=== PATIENT | male | born 1950 | race Caucasian/White ===

== ENCOUNTER 2017-08-21 20:47 | Inpatient (IN) | payer MEDICARE, MEDICAID, SELFPAY ==
[2017-08-21 20:48] VITALS: BP 137/75; PULSE 122; RESP 21; TEMP 36.6; O2SAT 92; BMI 50.5
--- NOTE | 2017-08-21 20:58 | EKG12_ITS ---
Test Reason : SOB,CP Blood Pressure : / mmHG Vent. Rate : 120 BPM Atrial Rate : 120 BPM P-R Int : 124 ms QRS Dur : 080 ms QT Int : 348 ms P-R-T Axes : -03 -53 059 degrees QTc Int : 491 ms Sinus tachycardia with ventricular bigeminy Left axis deviation Inferior infarct , age undetermined Abnormal ECG Confirmed by TANYA GARRETT ([id number]), fan mail editor CRISTELA LONG ([id number]) on 08/31/2017 6:10:38 PM Referred By: FIDENCIO Confirmed By:TANYA GARRETT
[2017-08-21 21:00] VITALS: BP 148/73; PULSE 122; RESP 24; O2SAT 92
[2017-08-21 21:01] LABS: Bedside Glucose > 500 mg/dL (70-110)
[2017-08-21] MEDS: 0.9% Normal Saline 1,000 ML 1000 ML IV (21:05)
[2017-08-21 21:12] LABS: Absolute Lymphocyte Count 2.07 X10^3/ul (0.83-4.51); Basophil# 0.02 X10^3/uL; Basophil% 0.2 % (0-1); Eosinophil# 0.03 X10^3/uL; Eosinophils% 0.3 % (0-5); Hemoglobin 15.3 g/dl (13.0-16.5); Lymphocyte # 2.07 X10^3/ul (4.0); Lymphocyte % 17.4 % (19-41); Mean Corpuscular Hgb 29.2 pg (27.0-32.0); Mean Corpuscular Volume 85.9 fL (80-94); Mean Platelet Vol. 10.2 fl (6.2-12.0); Neutrophil # 9.03 X10^3/uL (2.7-7.7); Neutrophil % 75.9 % (47-70); Platelet Count 385 K/mm3 (150-450); RBC Distribution Width CV 13.4 % (11.6-14.6); RBC Distribution Width SD 42.1 fl (35.1-43.9); Red Blood Count 5.24 M/mm3 (4.6-6.2); White Blood Count 11.9 K/mm3 (4.4-11.0)
[2017-08-21 21:13] LABS: POSITIVE COUNT NO; POSITIVE DIFFERENTIAL NO; POSITIVE MORPHOLOGY NO
--- NOTE | 2017-08-21 21:15 | RAD_ITS ---
STUDY: X-RAY CHEST REASON FOR EXAM: Male, 67 years old. Shortness of breath, recent fall TECHNIQUE: Frontal views of the chest were obtained. COMPARISON: June 08, 2017 FINDINGS: The lungs are underaerated. There are no focal airspace opacities. There is no demonstrated pleural abnormality. There is mild enlargement of the cardiac silhouette. The mediastinum and hilar regions are unremarkable. Normal visualized pulmonary arteries. Normal visualized aortic arch and descending thoracic aorta. There are diffuse degenerative changes of the visualized spine. The visualized ribs, clavicles, and shoulders are unremarkable. There is no demonstrated abnormality of the visualized upper abdomen. RAD/Chest 1 View (Portable) IMPRESSION: No acute cardiopulmonary abnormalities. Electronically Signed: Milady Franco MD at 22:25 EDT Tel Direct: [phone], Service support ,
[2017-08-21 21:32] LABS: ALB/GLOB Ratio 0.8 RATIO (0.9-2.4); AST(SGOT) 24 U/L (15-37); Alanine Aminotransfer ALT/SGPT 32 U/L (16-61); Albumin, Serum 3.5 g/dL (3.2-5.0); Alkaline Phosphatase 76 U/L (45-117); Anion Gap 31 (5-15); BUN 36 mg/dL (7-18); BUN/Creat Ratio 19.1 RATIO (10-20); Calcium,Total 10.4 mg/dL (8.5-10.1); Chloride 83 mmol/L (98-107); Creatinine, Serum 1.88 mg/dL (0.70-1.30); EST Glomerular Filtration Rate 38 mL/min (>60); Est Glom Filt Rate - Afr Amer 46 mL/min (>60); Estimated Creatinine Clearance 39.91 ml/min; Globulin 4.4 g/dL (2.2-4.2); Glucose 629 mg/dL (74-106); Potassium 4.1 mmol/L (3.5-5.1); Protein, Total 7.9 g/dL (6.4-8.2); Sodium Level 128 mmol/L (136-145)
--- NOTE | 2017-08-21 21:56 | ED.DCSUM_ITS ---
- ER Visit Summary Date of Service: 08/21/17 Chief Complaint: Not feeling well History of Present Illness: The patient is a 67 M presenting stating that he does not feel well. His states that he has been feeling sick for the past 2 days. He is unable to describe his symptoms. His states today he rolled out of bed and she was unable to get him up. Patient is unsure if he hit his head or lost consciousness. He denies headache or vomiting. EMS was called. On their arrival his BGT was reading high. He complains of dry mouth and thirst. states he complained of chest pain earlier today. He has chronic shortness of breath. Denies fever or cough. Denies abdominal pain, nausea, vomiting. He is on home O2. Physical Examination: Vitals are stable. Heart rate 122. Patient is afebrile. Alert no acute distress. HEENT exam dry mucous membranes Neck is supple. Lungs are clear and equal bilaterally. Heart is regular and tachycardic Abdomen is soft obese mild diffuse tenderness with no rebound or guarding Extremities are unremarkable. Skin is warm and dry. No focal neurologic deficit. Remainder of exam is unremarkable. Emergency Department Course and Treatment: EKG is sinus tachycardia rate of 120 with fusion complexes. CBC shows a white count 11.9. Chemistries show sodium 128, CO2 14, anion gap 31, glucose 629, BUN 36, creatinine 1.88. Troponin is negative. Moderate serum ketones. Urinalysis shows 0 white cells, 0 red cells. Urine is positive for glucose and ketones. Chest xray shows no acute process. He was given IV fluids and started on insulin drip. Discussed with the hospitalist for admission. Disposition: Admission Impression: DKA This note was generated with [employer] dictation software. It may contain incorrect words, spelling, and punctuation that were not noted in review of the chart prior to signing ED Disposition - Plan for ED Patient: Chief Complaint: Hyperglycemia Referrals: Tor Juarez [Primary Care Provider] -
[2017-08-21 22:00] VITALS: BP 139/82; PULSE 115; RESP 23; O2SAT 91
[2017-08-21 22:05] LABS: Bacteria 0 SEEN /hpf (None Seen); Mucous, Urine 0 SEEN /hpf (<or=2+); Red Blood Cells-Urine 0 SEEN /hpf (0-5); White Blood Cells 0 SEEN /hpf (0-5)
[2017-08-21 22:15] LABS: Color, Urine Yellow (Yellow); Glucose, Dipstick 1000 mg/dl (Normal); Leukocyte Esterase-Dipstick Negative /ul (Negative); Nitrite-Dipstick Negative (Negative); Occult Blood-Urine 150 /ul (Negative); Protein-Dipstick 100 mg/dl (Negative); Urine Bilirubin Dipstick Negative (Negative); Urine Clarity Sl. Cloudy (Clear); Urine Urobilinogen Normal (Normal)
[2017-08-21 22:17] LABS: Ketone-Dipstick 150 mg/dl (Negative)
[2017-08-21] MEDS: Ondansetron 4 MG/2 ML Vial IV (22:20)
[2017-08-21] MEDS: 0.9% Normal Saline 1,000 ML 999 ML IV (22:20)
[2017-08-21] MEDS: Morphine 4 MG/ML Syringe IV (22:20)
[2017-08-21 22:21] LABS: Amorphous Sediment 1+ URATE; Squamous Epithelial Cells - UA 0-5 SEEN /hpf (0-5)
[2017-08-21 22:46] LABS: Bedside Glucose > 500 mg/dL (70-110)
[2017-08-21 23:05] VITALS: BP 132/71; PULSE 117; RESP 17; O2SAT 95
--- NOTE | 2017-08-21 23:05 | DT_ITS ---
This patient was seen during an EMR downtime August 24, 2017 - August 31, 2017. This patient may have a combination of paper and electronic documentation or all paper documentation. All documentation is viewable within the e-chart portion of [employer] for each patient visit.
[2017-08-21 23:21] VITALS: BMI 50.3; BMI 50.6
--- NOTE | 2017-08-21 23:22 | PCM.HP.STD ---
Problem List (1) DMII (diabetes mellitus, type 2) Status: Acute (2) DKA (diabetic ketoacidoses) Status: Acute (3) JOVANI (acute kidney injury) Status: Acute (4) Hyponatremia Status: Acute History of Present Illness Date of Admission: 08/21/17 Chief Complaint: DKA The patient is a 67 year old male w/ h/o DMII and HTN admitted for DKA. He has been noncompliant with meds and diet. According to family, he does not help himself and eats whatever he wants from drinking an excessive amount of sodas to noncompliant with insulin especially when no one is home. He also does not help himself and just sits around all day with family members doing everything for him. He has been feeling sick for the past few days and when he rolled out of bed, he was unable to get up. His son was unable to help him get out of bed this time. Paramedics was called and took him to the ED. Past Medical History Allergies DYE FROM HEART CATH Allergy (Uncoded 09/22/15 15:26) Anaphylaxis Home Medications: Ambulatory Orders Medication Instructions Recorded Aspirin 325 mg PO DAILY 08/21/17 Cholecalciferol (Vitamin D3) 5,000 units DAILY 08/21/17 [Vitamin D3] Clopidogrel Bisulfate [Plavix] 75 mg DAILY 08/21/17 Cyanocobalamin (Vitamin B-12) 2,500 mcg PO DAILY 08/21/17 [Vitamin B12] Esomeprazole Magnesium 40 mg DAILY 08/21/17 [Esomeprazole Magnesium] Fenofibrate Nanocrystallized 145 mg DAILY 08/21/17 [Fenofibrate] Fluticasone/Salmeterol [Advair 1 puff BID 08/21/17 500-50 Diskus] Furosemide [Lasix] 40 mg TID 08/21/17 Gabapentin [Neurontin] 300 mg DAILY 08/21/17 Insulin Human 70/30 [Novolog Mix 0 units SC 4X/DAY 08/21/17 70-30 Flexpen Syrn] Iron 1 tab DAILY 08/21/17 Losartan/Hydrochlorothiazide 1 each PO DAILY 08/21/17 [Losartan-Hctz 50-12.5 mg Tab] Metformin HCl [Glucophage] 1,000 mg BID 08/21/17 Metoprolol Tartrate [Lopressor 50 mg BID 08/21/17 (beta edison)] Potassium Chloride [Potassium 40 meq DAILY 08/21/17 Chloride] Rosuvastatin Calcium [Crestor] 20 mg PO DAILY 08/21/17 Tiotropium [place] [Spiriva] 08/21/17 Surgical History: no surgical history Lives: With Family Smoking Status: Never smoker Alcohol: None Drugs: None - *Family History Maternal History Items: No pertinent history Review of Systems Constitutional: Denies: Chills, Fever, Weight Change HEENT: Denies: Head Aches, Sinus Congestion, Sinus Drainage Cardiovascular: Denies: Chest Pain, Palpitations Respiratory: Denies: Cough, Shortness of breath at rest, Sputum production Gastrointestinal: Denies: Abdominal Pain, Nausea, Vomiting Genitourinary: Denies: Dysuria Musculoskeletal: Reports: Back Pain. Denies: Joint Pain, Joint Tenderness Skin: Denies: Rash, Wounds Neurological: Denies: Numbness, Tingling, Focal weakness Psychiatric: Denies: Anxiety, Depression, Homicidal Ideations, Suicidal Ideations Hematologic/ Lymphatic: Denies: Easy Bruising, Easy Bleeding VTE Information - Inpt Only VTE Present on Admission: No VTE Pharm Prophylaxis ordered?: Yes Patient Problems: Active and Suspected Problems DMII (diabetes mellitus, type 2) (Acute) DKA (diabetic ketoacidoses) (Acute) JOVANI (acute kidney injury) (Acute) Hyponatremia (Acute) - Physical Exam General: Alert, Oriented x3, Cooperative HEENT: Atraumatic, PERRLA, EOMI, Normocephalic Neck: Supple, No JVD, Negative Carotid Bruits Lungs: Clear to auscultation, Normal air movement Cardiovascular: No murmurs, Tachycardic Abdomen: Bowel Sounds Present, Soft, Non Tender Extremities: Cool, Edema Skin: No rashes, No breakdown Musculoskeletal: No Tenderness to Palpation of Joints or Extremities Neurological: Cranial nerves II-XII grossly intact Psych/Mental Status: Normal Affect, Appropriate Vital Signs Temp Pulse Resp BP Pulse Ox 98 F 115 H 23 H 139/82 H 91 08/21/17 20:48 08/21/17 22:00 08/21/17 22:00 08/21/17 22:00 08/21/17 22:00 Assessment/Plan All Active Problems DMII (diabetes mellitus, type 2) (Acute) DKA (diabetic ketoacidoses) (Acute) JOVANI (acute kidney injury) (Acute) Hyponatremia (Acute) 67 year old male w/ h/o DMII and HTN admitted for DKA. 1) DKA: Most likely secondary to noncompliant. Metabolic acidosis, gap 31 and glucose 629 DKA protocol. Trop negative. Insulin gtt and hydration. 2) JOVANI: Hydration. U/A unremarkable with the exception for glucose and ketones. Supportive care. 3) Hyponatremia: Most likely pseudohyponatremia. Hydration. C/w insulin. 4) Physical decondition: Probably may need placement as family unable to care for pt. Social work consult. PT/OT.
[2017-08-21 23:30] LABS: Bedside Glucose 460 mg/dL (70-110)
[2017-08-22] VITALS (39 sets, daily range): BP systolic 100–168; BP diastolic 62–105; PULSE 80–122; RESP 14–28; TEMP 36.5–36.9; O2SAT 90–95
--- NOTE | 2017-08-22 00:13 | ED.RN ---
AT 2330 BLOOD SUGAR WAS 460. PREVIOUS FINGER STICK WAS HIGH. SO GLUCOSE DECREASED BY UNKNOWN NUMBER. INSULIN GTT STAYED SAME PER DECREASING BY 1-49 -KEEP GTT SAME. SERUM GLUCOSE 612 ARRIVAL, BUT 2 L IV FLUID GIVEN BEFORE INSULIN GTT STARTED.
[2017-08-22 00:45] LABS: Bedside Glucose 359 mg/dL (70-110)
[2017-08-22] MEDS: 0.9% Normal Saline 1,000 ML 250 ML IV (01:18)
[2017-08-22 01:28] LABS: Hemoglobin A1c 12.9 % (4.2-6.3)
[2017-08-22 01:49] LABS: AST(SGOT) 35 U/L (15-37); Alanine Aminotransfer ALT/SGPT 31 U/L (16-61); Albumin, Serum 3.4 g/dL (3.2-5.0); Alkaline Phosphatase 71 U/L (45-117); Anion Gap 25 (5-15); BUN 40 mg/dL (7-18); BUN/Creat Ratio 26.3 RATIO (10-20); Bilirubin, Direct 0.08 mg/dL (0.00-0.30); Calcium,Total 10.4 mg/dL (8.5-10.1); Chloride 92 mmol/L (98-107); Creatinine, Serum 1.52 mg/dL (0.70-1.30); EST Glomerular Filtration Rate 49 mL/min (>60); Est Glom Filt Rate - Afr Amer 59 mL/min (>60); Estimated Creatinine Clearance 49.36 ml/min; Globulin 4.2 g/dL (2.2-4.2); Glucose 302 mg/dL (74-106); Potassium 3.4 mmol/L (3.5-5.1); Protein, Total 7.6 g/dL (6.4-8.2); Sodium Level 132 mmol/L (136-145)
[2017-08-22 02:06] LABS: Bedside Glucose 242 mg/dL (70-110)
[2017-08-22 02:07] LABS: Osmolality, Serum 320 mOsm/KG (280-301)
[2017-08-22 02:14] LABS: M R Staph aureus DNA By PCR Negative (Negative); Probe Check PASS; Specimen Processing Control PASS
[2017-08-22 02:45] LABS: Bedside Glucose 237 mg/dL (70-110)
[2017-08-22 04:01] LABS: Bedside Glucose 266 mg/dL (70-110)
[2017-08-22] MEDS: CHLORHEXIDINE GLUC 2% CLOTH 1 EACH TOWELETTE TOPICAL (04:45)
[2017-08-22 05:16] LABS: Bedside Glucose 224 mg/dL (70-110)
[2017-08-22 05:26] LABS: Basophil# 0.01 X10^3/uL; Basophil% 0.1 % (0-1); Differential Indicated SCAN CRITERIA MET; Eosinophil# 0.01 X10^3/uL; Eosinophils% 0.1 % (0-5); Hematocrit 40.7 % (40-54); Lymphocyte % 10.4 % (19-41); Mean Corp Hgb Conc 34.4 g/gl (32-36); Mean Corpuscular Hgb 29.2 pg (27.0-32.0); Mean Corpuscular Volume 84.8 fL (80-94); Monocyte# 1.42 X10^3/uL; Monocyte% 8.2 % (0-10); Neutrophil # 14.02 X10^3/uL (2.7-7.7); Neutrophil % 80.8 % (47-70); POSITIVE COUNT YES; POSITIVE DIFFERENTIAL NO; POSITIVE MORPHOLOGY YES; Platelet Count 337 K/mm3 (150-450); RBC Distribution Width CV 13.5 % (11.6-14.6); RBC Distribution Width SD 41.4 fl (35.1-43.9); White Blood Count 17.3 K/mm3 (4.4-11.0)
[2017-08-22 05:38] LABS: Magnesium 2.4 mg/dL (1.6-2.6)
[2017-08-22] MEDS: Dext 5%-0.45% NS 1,000 ML 150 ML IV ×2 (05:43→12:51)
[2017-08-22 05:45] LABS: Phosphorus 4.3 mg/dL (2.5-4.9)
[2017-08-22 06:16] LABS: Bedside Glucose 252 mg/dL (70-110)
[2017-08-22 07:15] LABS: Bedside Glucose 220 mg/dL (70-110)
[2017-08-22] MEDS: Haloperidol Lactate 5 MG/ML Vial 2 MG IV (08:12)
[2017-08-22] MEDS: Haloperidol Lactate 5 MG/ML Vial IV (08:30)
[2017-08-22 08:35] LABS: Bedside Glucose 214 mg/dL (70-110)
[2017-08-22 08:55] LABS: Anion Gap 15 (5-15); BUN 37 mg/dL (7-18); BUN/Creat Ratio 25.7 RATIO (10-20); Calcium,Total 9.8 mg/dL (8.5-10.1); Chloride 96 mmol/L (98-107); Creatinine, Serum 1.44 mg/dL (0.70-1.30); EST Glomerular Filtration Rate 52 mL/min (>60); Est Glom Filt Rate - Afr Amer 63 mL/min (>60); Glucose 230 mg/dL (74-106); Sodium Level 134 mmol/L (136-145)
--- NOTE | 2017-08-22 09:04 | PCM.PN.HOSP ---
Patient Problems: Active and Suspected Problems DMII (diabetes mellitus, type 2) (Acute) DKA (diabetic ketoacidoses) (Acute) JOVANI (acute kidney injury) (Acute) Hyponatremia (Acute) Subjective: Complains of back pain. Wanting to get up and get out of the hospital. Vitals/I&O's: Vital Signs Temp Pulse Resp BP Pulse Ox 36.5 C L 114 H 15 152/67 H 91 08/22/17 08:00 08/22/17 08:00 08/22/17 08:00 08/22/17 08:00 08/22/17 08:00 Oxygen Flow Rate (L/min) 5 Oxygen Delivery Method Nasal Cannula Weight: 158 kg Body Mass Index (BMI) 50.3 Finger Stick Blood Glucose 252 Intake and Output for Last 24 Hours 08/20/17 08/21/17 08/22/17 23:59 23:59 23:59 Intake Total 1245 / 1245 Output Total 400 / 400 Balance 845 / 845 General: Confused, - - Awake. Anxious. Agitated. HEENT: Atraumatic, Normocephalic Oral: Moist Mucosa, - - edentulous Neck: No Nodes, Thyroid Normal Size and Texture Lungs: Clear to auscultation, Normal air movement, No rhonchi, No wheeze Cardiovascular: Regular rate, Regular Rhythm, Normal S1, Normal S2, No murmurs Abdomen: Bowel Sounds Present, Soft, Non Tender, Non-Distended Extremities: No edema, No Calf Tenderness Psych/Mental Status: Agitated, Anxious Laboratory Results 08/21/17 23:27: POC Glucose 460 H* 08/22/17 00:38: POC Glucose 359 H 08/22/17 00:40: MRSA (PCR) Negative 08/22/17 01:20: Total Bilirubin 0.40, Direct Bilirubin 0.08, AST 35, ALT 31, Alkaline Phosphatase 71, Total Protein 7.6, Albumin 3.4, Globulin 4.2 08/22/17 01:20: Sodium 132 L, Potassium 3.4 L, Chloride 92 L, Carbon Dioxide 15.0 L, Anion Gap 25 H, BUN 40 H, Creatinine 1.52 H, Estim Creat Clear Calc 49.36, Est GFR (MDRD) Af Amer 59 L, Est GFR (MDRD) Non-Af 49 L, BUN/Creatinine Ratio 26.3 H, Glucose 302 H, Calcium 10.4 H 08/22/17 01:20: Serum Osmolality 320 H 08/22/17 01:20: Sodium Cancelled, Potassium Cancelled, Chloride Cancelled, Carbon Dioxide Cancelled, Anion Gap Cancelled, BUN Cancelled, Creatinine Cancelled, Est GFR (MDRD) Af Amer Cancelled, Est GFR (MDRD) Non-Af Cancelled, BUN/Creatinine Ratio Cancelled, Glucose Cancelled, Calcium Cancelled, Troponin I < 0.015 08/22/17 01:48: POC Glucose 242 H 08/22/17 02:41: POC Glucose 237 H 08/22/17 03:51: POC Glucose 266 H 08/22/17 05:11: POC Glucose 224 H 08/22/17 05:12: WBC 17.3 H, RBC 4.80, Hgb 14.0, Hct 40.7, MCV 84.8, MCH 29.2, MCHC 34.4, RDW 13.5, RDW Differential 41.4, Plt Count 337, MPV 10.0, Immature Gran % (Auto) 0.400, Neut % (Auto) 80.8 H, Lymph % (Auto) 10.4 L, [place] % (Auto) 8.2, Eos % (Auto) 0.1, Baso % (Auto) 0.1, Absolute Neuts (auto) 14.0 H, Absolute Lymphs (auto) 1.80, Total Counted Not Reportable, Differential Comment 08/22/17 05:12: Magnesium 2.4, Troponin I 0.018 08/22/17 05:12: Phosphorus 4.3 08/22/17 06:07: POC Glucose 252 H 08/22/17 07:08: POC Glucose 220 H 08/22/17 08:10: POC Glucose 214 H 08/22/17 08:35: Sodium 134 L, Potassium 4.0, Chloride 96 L, Carbon Dioxide 23.0, Anion Gap 15, BUN 37 H, Creatinine 1.44 H, Estim Creat Clear Calc 52.10, Est GFR (MDRD) Af Amer 63, Est GFR (MDRD) Non-Af 52 L, BUN/Creatinine Ratio 25.7 H, Glucose 230 H, Calcium 9.8 Current Medications Aspirin (Aspirin) 325 mg PO DAILYCM ELIANA Atorvastatin Calcium (Lipitor) 40 mg PO DAILY@2200 [facility] Chlorhexidine Gluconate () 1 each TOPICAL DAILY [facility] Last Admin: 08/22/17 04:45 Dose: 1 each Clopidogrel Bisulfate (Plavix) 75 mg PO DAILY [facility] Dextrose (D50w Syringe) 0 gm IV X1 PRN; Protocol PRN Reason: Hypoglycemia Dextrose (D50w Syringe) 0 gm IV X1 PRN; Protocol PRN Reason: AGITATION Insulin Aspart 100 unit/ (Sodium Chloride) 100 mls @ 16 mls/hr IV .Q6H15M ELIANA; 0.1 UNITS/KG/HR PRN Reason: Protocol Last Admin: 08/22/17 01:19 Dose: Not Given Sodium Chloride () 250 mls @ 15 mls/hr IV .[id number] PRN PRN Reason: SALINE FLUSH Dextrose/Sodium Chloride () 1,000 mls @ 150 mls/hr IV .Q6H40M ELIANA Last Admin: 08/22/17 05:43 Dose: 150 mls/hr Metoprolol Tartrate (Lopressor (Beta Hazel)) 50 mg PO BID [facility] Pantoprazole Sodium (Protonix) 40 mg PO DAILY [facility] Sodium Chloride () 5 - 30 ml IV UD PRN PRN Reason: SALINE FLUSH Medical Necessity - Tobacco Use Smoking Status: Never smoker Assessment/Plan All Active Problems DMII (diabetes mellitus, type 2) (Acute) DKA (diabetic ketoacidoses) (Acute) JOVANI (acute kidney injury) (Acute) Hyponatremia (Acute) 1. Diabetic ketoacidosis Due to dietary and medical noncompliance Gap is closed ?1. Continue with the insulin drip protocol for now. Anticipate transitioning the patient over to full and prandial insulin once gap again is confirmed closed. Unclear what this patient's actual home insulin requirements are. Would likely start the patient on NPH and give him a dose of 20 and then to be ?1 and then tonight start him on 40 mg of Levemir and then to utilize 10 units of NovoLog with meals. 2. Metabolic encephalopathy There certainly is some component of metabolic encephalopathy but some his confusion may be not far from his baseline. Is unclear. So we will see how the patient's mental status improves but I feel the patient probably has some underlying either psychological issues or even dementia that may be contributing to this confusion that he is experiencing. Patient did receive a total of 7 mg of Haldol. The purpose of the Haldol was the patient was very agitated throwing his arms around and was concern for harm to staff but also the fact the patient was trying to get out of bed and given his poor performance status that he could have fallen and severely injured himself and so the other reason for the chemical restraints as well. Patient was put in soft physical restraints to help prevent him from getting out of bed and causing further injury to himself. 3. Chronic kidney disease stage IV Presented patient's baseline is 1.5 creatinine. Patient was 1.88 so I would not actually characterize this is acute kidney injury as the degree of rise is not that significant compared to his baseline. Likely related with diabetes. Avoid nephrotoxic agents as much as possible. 4. Debility Patient had profound difficulty just moving himself in his bed and then quickly tired out. Do not feel the patient has physical strength actually get himself out of his bed but still the potential is there Do not feel that patient going back to his home environment would be ideal for him as he is pretty much bedbound from the descriptions I feel that he would be better benefited by going to a long term facility but ultimately that will be up to the patient if he is competent she is currently not at this time or the family and next of kin. 5. DVT prophylaxis with subcu heparin. And then 50 minutes of which greater than 50% time was spent at bedside attempting to console and calm down the patient but also to help with being able to give the patient medication and also to help with placing on the soft restraints. Code Visit Inpatient E&M: 84634 Subs Hosp L3
--- NOTE | 2017-08-22 09:14 | PN_ITS ---
Patient Problems: Active and Suspected Problems DMII (diabetes mellitus, type 2) (Acute) DKA (diabetic ketoacidoses) (Acute) JOVANI (acute kidney injury) (Acute) Hyponatremia (Acute) Subjective: Complains of back pain. Wanting to get up and get out of the hospital. Vitals/I&O's: Vital Signs Temp Pulse Resp BP Pulse Ox 36.5 C L 114 H 15 152/67 H 91 08/22/17 08:00 08/22/17 08:00 08/22/17 08:00 08/22/17 08:00 08/22/17 08:00 Oxygen Flow Rate (L/min) 5 Oxygen Delivery Method Nasal Cannula Weight: 158 kg Body Mass Index (BMI) 50.3 Finger Stick Blood Glucose 252 Intake and Output for Last 24 Hours 08/20/17 08/21/17 08/22/17 23:59 23:59 23:59 Intake Total 1245 / 1245 Output Total 400 / 400 Balance 845 / 845 General: Confused, - - Awake. Anxious. Agitated. HEENT: Atraumatic, Normocephalic Oral: Moist Mucosa, - - edentulous Neck: No Nodes, Thyroid Normal Size and Texture Lungs: Clear to auscultation, Normal air movement, No rhonchi, No wheeze Cardiovascular: Regular rate, Regular Rhythm, Normal S1, Normal S2, No murmurs Abdomen: Bowel Sounds Present, Soft, Non Tender, Non-Distended Extremities: No edema, No Calf Tenderness Psych/Mental Status: Agitated, Anxious Laboratory Results 08/21/17 23:27: POC Glucose 460 H* 08/22/17 00:38: POC Glucose 359 H 08/22/17 00:40: MRSA (PCR) Negative 08/22/17 01:20: Total Bilirubin 0.40, Direct Bilirubin 0.08, AST 35, ALT 31, Alkaline Phosphatase 71, Total Protein 7.6, Albumin 3.4, Globulin 4.2 08/22/17 01:20: Sodium 132 L, Potassium 3.4 L, Chloride 92 L, Carbon Dioxide 15.0 L, Anion Gap 25 H, BUN 40 H, Creatinine 1.52 H, Estim Creat Clear Calc 49.36, Est GFR (MDRD) Af Amer 59 L, Est GFR (MDRD) Non-Af 49 L, BUN/Creatinine Ratio 26.3 H, Glucose 302 H, Calcium 10.4 H 08/22/17 01:20: Serum Osmolality 320 H 08/22/17 01:20: Sodium Cancelled, Potassium Cancelled, Chloride Cancelled, Carbon Dioxide Cancelled, Anion Gap Cancelled, BUN Cancelled, Creatinine Cancelled, Est GFR (MDRD) Af Amer Cancelled, Est GFR (MDRD) Non-Af Cancelled, BUN/Creatinine Ratio Cancelled, Glucose Cancelled, Calcium Cancelled, Troponin I < 0.015 08/22/17 01:48: POC Glucose 242 H 08/22/17 02:41: POC Glucose 237 H 08/22/17 03:51: POC Glucose 266 H 08/22/17 05:11: POC Glucose 224 H 08/22/17 05:12: WBC 17.3 H, RBC 4.80, Hgb 14.0, Hct 40.7, MCV 84.8, MCH 29.2, MCHC 34.4, RDW 13.5, RDW Differential 41.4, Plt Count 337, MPV 10.0, Immature Gran % (Auto) 0.400, Neut % (Auto) 80.8 H, Lymph % (Auto) 10.4 L, [place] % (Auto) 8.2, Eos % (Auto) 0.1, Baso % (Auto) 0.1, Absolute Neuts (auto) 14.0 H, Absolute Lymphs (auto) 1.80, Total Counted Not Reportable, Differential Comment 08/22/17 05:12: Magnesium 2.4, Troponin I 0.018 08/22/17 05:12: Phosphorus 4.3 08/22/17 06:07: POC Glucose 252 H 08/22/17 07:08: POC Glucose 220 H 08/22/17 08:10: POC Glucose 214 H 08/22/17 08:35: Sodium 134 L, Potassium 4.0, Chloride 96 L, Carbon Dioxide 23.0 , Anion Gap 15, BUN 37 H, Creatinine 1.44 H, Estim Creat Clear Calc 52.10, Est GFR (MDRD) Af Amer 63, Est GFR (MDRD) Non-Af 52 L, BUN/Creatinine Ratio 25.7 H, Glucose 230 H, Calcium 9.8 Current Medications Aspirin (Aspirin) 325 mg PO DAILYCM ELIANA Atorvastatin Calcium (Lipitor) 40 mg PO DAILY@2200 [facility] Chlorhexidine Gluconate () 1 each TOPICAL DAILY [facility] Last Admin: 08/22/17 04:45 Dose: 1 each Clopidogrel Bisulfate (Plavix) 75 mg PO DAILY [facility] Dextrose (D50w Syringe) 0 gm IV X1 PRN; Protocol PRN Reason: Hypoglycemia Dextrose (D50w Syringe) 0 gm IV X1 PRN; Protocol PRN Reason: AGITATION Insulin Aspart 100 unit/ (Sodium Chloride) 100 mls @ 16 mls/hr IV .Q6H15M ELIANA; 0.1 UNITS/KG/HR PRN Reason: Protocol Last Admin: 08/22/17 01:19 Dose: Not Given Sodium Chloride () 250 mls @ 15 mls/hr IV .[id number] PRN PRN Reason: SALINE FLUSH Dextrose/Sodium Chloride () 1,000 mls @ 150 mls/hr IV .Q6H40M ELIANA Last Admin: 08/22/17 05:43 Dose: 150 mls/hr Metoprolol Tartrate (Lopressor (Beta Hazel)) 50 mg PO BID [facility] Pantoprazole Sodium (Protonix) 40 mg PO DAILY [facility] Sodium Chloride () 5 - 30 ml IV UD PRN PRN Reason: SALINE FLUSH Medical Necessity - Tobacco Use Smoking Status: Never smoker Assessment/Plan All Active Problems DMII (diabetes mellitus, type 2) (Acute) DKA (diabetic ketoacidoses) (Acute) JOVANI (acute kidney injury) (Acute) Hyponatremia (Acute) 1. Diabetic ketoacidosis * Due to dietary and medical noncompliance * Gap is closed ?1. Continue with the insulin drip protocol for now. Anticipate transitioning the patient over to full and prandial insulin once gap again is confirmed closed. Unclear what this patient's actual home insulin requirements are. Would likely start the patient on NPH and give him a dose of 20 and then to be ?1 and then tonight start him on 40 mg of Levemir and then to utilize 10 units of NovoLog with meals. 2. Metabolic encephalopathy * There certainly is some component of metabolic encephalopathy but some his confusion may be not far from his baseline. Is unclear. So we will see how the patient's mental status improves but I feel the patient probably has some underlying either psychological issues or even dementia that may be contributing to this confusion that he is experiencing. * Patient did receive a total of 7 mg of Haldol. The purpose of the Haldol was the patient was very agitated throwing his arms around and was concern for harm to staff but also the fact the patient was trying to get out of bed and given his poor performance status that he could have fallen and severely injured himself and so the other reason for the chemical restraints as well. Patient was put in soft physical restraints to help prevent him from getting out of bed and causing further injury to himself. 3. Chronic kidney disease stage IV * Presented patient's baseline is 1.5 creatinine. Patient was 1.88 so I would not actually characterize this is acute kidney injury as the degree of rise is not that significant compared to his baseline. * Likely related with diabetes. * Avoid nephrotoxic agents as much as possible. 4. Debility * Patient had profound difficulty just moving himself in his bed and then quickly tired out. * Do not feel the patient has physical strength actually get himself out of his bed but still the potential is there * Do not feel that patient going back to his home environment would be ideal for him as he is pretty much bedbound from the descriptions * I feel that he would be better benefited by going to a usp facility but ultimately that will be up to the patient if he is competent she is currently not at this time or the family and next of kin. 5. DVT prophylaxis with subcu heparin. And then 50 minutes of which greater than 50% time was spent at bedside attempting to console and calm down the patient but also to help with being able to give the patient medication and also to help with placing on the soft restraints. Code Visit Inpatient E&M: 80218 Subs Hosp L3
[2017-08-22] MEDS: Metoprolol Tartrate 50 MG Tablet PO ×2 (09:21→21:25)
[2017-08-22] MEDS: Aspirin 325 MG Tablet PO (09:21)
[2017-08-22] MEDS: Clopidogrel Bisulfate 75 MG Tablet PO (09:21)
[2017-08-22] MEDS: 0.9% NaCl Peripheral Flush Adult/Peds IV ×2 (09:22→12:51)
[2017-08-22] MEDS: Pantoprazole Sodium 40 MG Tablet PO (09:22)
[2017-08-22 10:21] LABS: Bedside Glucose 250 mg/dL (70-110)
[2017-08-22 11:35] LABS: Bedside Glucose 215 mg/dL (70-110)
[2017-08-22 12:41] LABS: Bedside Glucose 204 mg/dL (70-110)
--- NOTE | 2017-08-22 12:41 | CASEMGMT ---
This RN CM to ICU to complete CM assessment at this time. Per Azalea RAMIREZ, now is not a good time for pt and she requests that this RN CM come back in an 'hour or so when is at bedside.' SStaten RN CM
[2017-08-22 12:57] LABS: Anion Gap 11 (5-15); BUN 36 mg/dL (7-18); BUN/Creat Ratio 24.2 RATIO (10-20); Calcium,Total 9.7 mg/dL (8.5-10.1); Chloride 97 mmol/L (98-107); Creatinine, Serum 1.49 mg/dL (0.70-1.30); EST Glomerular Filtration Rate 50 mL/min (>60); Est Glom Filt Rate - Afr Amer 61 mL/min (>60); Estimated Creatinine Clearance 50.35 ml/min; Glucose 209 mg/dL (74-106); Potassium 3.7 mmol/L (3.5-5.1); Sodium Level 133 mmol/L (136-145)
[2017-08-22] MEDS: Insulin NPH Human 100 UNITS/ML PEN 15 UNITS SC (13:48)
--- NOTE | 2017-08-22 14:44 | CASEMGMT ---
Face to Face with patient for initial transition planning/care coordination assessment. ASHLEY BOGGS introduced self and role at [facility], pt voices understanding and consents to assessment at this time. Pt is sitting up in bed in no distress at this time. Pt is A/O x2-3 at this time and answers most questions appropriately at this time. Care providers, pharmacy, and demographics verified. See attached link. Advised that SW would f/u on Thursday regarding her concerns and possible SNF placement, voices understanding. Pt/ voice no further concerns/needs at this time. Kym GERMAIN and Azalea RAMIREZ updated on all at this time, voice understanding. PLAN: TBMarcie Kumar RN, CM
[2017-08-22] MEDS: Insulin Lispro 100 UNIT/ML INSULN.PEN 10 UNIT SQ (16:13)
[2017-08-22] MEDS: Insulin Lispro 100 UNIT/ML INSULN.PEN SQ (16:14)
[2017-08-22 16:16] LABS: Bedside Glucose 314 mg/dL (70-110)
[2017-08-22] MEDS: Atorvastatin Calcium 40 MG Tablet PO (21:25)
[2017-08-22 21:40] LABS: Bedside Glucose 288 mg/dL (70-110)
[2017-08-22] MEDS: Insulin Lispro 100 UNIT/ML INSULN.PEN 6 UNIT SC (21:49)
[2017-08-22] MEDS: Heparin Injection (Vial) 5,000 UNIT/ML VIAL 5000 UNIT SC (21:49)
[2017-08-23] VITALS (22 sets, daily range): BP systolic 112–168; BP diastolic 63–85; PULSE 83–103; RESP 14–26; TEMP 36.3–36.8; O2SAT 89–99
--- NOTE | 2017-08-23 00:16 | NURSING ---
Restraints discontinued at 2345, patient cooperative.
[2017-08-23 05:02] LABS: Absolute Lymphocyte Count 1.58 X10^3/ul (0.83-4.51); Basophil# 0.02 X10^3/uL; Basophil% 0.2 % (0-1); Eosinophil# 0.02 X10^3/uL; Eosinophils% 0.2 % (0-5); Hemoglobin 13.8 g/dl (13.0-16.5); Lymphocyte # 1.58 X10^3/ul (4.0); Lymphocyte % 14.9 % (19-41); Mean Corp Hgb Conc 34.5 g/gl (32-36); Mean Corpuscular Hgb 29.4 pg (27.0-32.0); Mean Corpuscular Volume 85.3 fL (80-94); Mean Platelet Vol. 10.1 fl (6.2-12.0); Monocyte# 0.94 X10^3/uL; Monocyte% 8.9 % (0-10); Neutrophil # 7.96 X10^3/uL (2.7-7.7); Neutrophil % 75.3 % (47-70); Platelet Count 292 K/mm3 (150-450); RBC Distribution Width CV 13.8 % (11.6-14.6); RBC Distribution Width SD 42.5 fl (35.1-43.9); Red Blood Count 4.69 M/mm3 (4.6-6.2); White Blood Count 10.6 K/mm3 (4.4-11.0)
[2017-08-23 05:04] LABS: Anion Gap 16 (5-15); BUN 27 mg/dL (7-18); BUN/Creat Ratio 22.5 RATIO (10-20); Calcium,Total 9.8 mg/dL (8.5-10.1); Chloride 99 mmol/L (98-107); EST Glomerular Filtration Rate 64 mL/min (>60); Est Glom Filt Rate - Afr Amer 78 mL/min (>60); Estimated Creatinine Clearance 62.52 ml/min; Glucose 290 mg/dL (74-106); Potassium 3.8 mmol/L (3.5-5.1); Sodium Level 138 mmol/L (136-145)
[2017-08-23 05:40] LABS: POSITIVE COUNT NO; POSITIVE DIFFERENTIAL NO; POSITIVE MORPHOLOGY NO
[2017-08-23 06:51] LABS: Bedside Glucose 272 mg/dL (70-110)
[2017-08-23] MEDS: Insulin Lispro 100 UNIT/ML INSULN.PEN 10 UNIT SQ ×2 (08:13→11:59)
[2017-08-23] MEDS: Insulin Lispro 100 UNIT/ML INSULN.PEN SQ ×3 (08:14→16:49)
[2017-08-23] MEDS: Aspirin 325 MG Tablet PO (09:51)
[2017-08-23] MEDS: CHLORHEXIDINE GLUC 2% CLOTH 1 EACH TOWELETTE TOPICAL (09:51)
[2017-08-23] MEDS: Pantoprazole Sodium 40 MG Tablet PO (09:51)
[2017-08-23] MEDS: Metoprolol Tartrate 50 MG Tablet PO ×2 (09:51→22:14)
[2017-08-23] MEDS: Clopidogrel Bisulfate 75 MG Tablet PO (09:51)
[2017-08-23] MEDS: Heparin Injection (Vial) 5,000 UNIT/ML VIAL 5000 UNIT SC ×2 (09:58→22:13)
[2017-08-23 12:05] LABS: Bedside Glucose 319 mg/dL (70-110)
--- NOTE | 2017-08-23 14:31 | PCM.PN.HOSP ---
Patient Problems: Active and Suspected Problems DMII (diabetes mellitus, type 2) (Acute) DKA (diabetic ketoacidoses) (Acute) JOVANI (acute kidney injury) (Acute) Hyponatremia (Acute) Subjective: Much better today. No agitation or combativeness today. Vitals/I&O's: Vital Signs Temp Pulse Resp BP Pulse Ox 36.4 C L 85 20 H 164/75 H 96 08/23/17 12:00 08/23/17 12:00 08/23/17 12:00 08/23/17 12:00 08/23/17 12:00 Oxygen Flow Rate (L/min) 5 Oxygen Delivery Method Nasal Cannula Weight: 157.3 kg Body Mass Index (BMI) 50.3 Finger Stick Blood Glucose 252 Intake and Output for Last 24 Hours 08/21/17 08/22/17 08/23/17 23:59 23:59 23:59 Intake Total 2715 / 2715 760 / 760 Output Total 2450 / 2450 1800 / 1800 Balance 265 / 265 -1040 / -1040 General: Alert, No apparent distress, - - Oriented and pleasant. HEENT: Atraumatic, Normocephalic Oral: Moist Mucosa, No Gingival or Mucosal Lesions/ Ulcerations Neck: No Nodes, Thyroid Normal Size and Texture Lungs: Clear to auscultation, No rhonchi, No wheeze, Diminished Cardiovascular: Regular rate, Regular Rhythm, Normal S1, Normal S2 Abdomen: Bowel Sounds Present, Soft, Non Tender, Non-Distended, No Hepato-splenomegaly, Obese Extremities: No edema, No Calf Tenderness Psych/Mental Status: Normal Affect, Appropriate Laboratory Results 08/22/17 16:08: POC Glucose 314 H 08/22/17 21:22: POC Glucose 288 H 08/23/17 04:35: WBC 10.6, RBC 4.69, Hgb 13.8, Hct 40.0, MCV 85.3, MCH 29.4, MCHC 34.5, RDW 13.8, RDW Differential 42.5, Plt Count 292, MPV 10.1, Immature Gran % (Auto) 0.500, Neut % (Auto) 75.3 H, Lymph % (Auto) 14.9 L, [place] % (Auto) 8.9, Eos % (Auto) 0.2, Baso % (Auto) 0.2, Absolute Neuts (auto) 8.0 H, Absolute Lymphs (auto) 1.58, Total Counted Not Reportable 08/23/17 04:40: Sodium 138, Potassium 3.8, Chloride 99, Carbon Dioxide 23.0, Anion Gap 16 H, BUN 27 H, Creatinine 1.20, Estim Creat Clear Calc 62.52, Est GFR (MDRD) Af Amer 78, Est GFR (MDRD) Non-Af 64, BUN/Creatinine Ratio 22.5 H, Glucose 290 H, Calcium 9.8 08/23/17 06:47: POC Glucose 272 H 08/23/17 11:57: POC Glucose 319 H Current Medications Aspirin (Aspirin) 325 mg PO DAILYCM [facility] Last Admin: 08/23/17 09:51 Dose: 325 mg Atorvastatin Calcium (Lipitor) 40 mg PO DAILY@2200 [facility] Last Admin: 08/22/17 21:25 Dose: 40 mg Chlorhexidine Gluconate () 1 each TOPICAL DAILY [facility] Last Admin: 08/23/17 09:51 Dose: 1 each Clopidogrel Bisulfate (Plavix) 75 mg PO DAILY [facility] Last Admin: 08/23/17 09:51 Dose: 75 mg Dextrose (D50w Syringe) 0 gm IV X1 PRN; Protocol PRN Reason: Hypoglycemia Glucagon () 1 mg IM .X1 PRN PRN Reason: Hypoglycemia Heparin Sodium (Porcine) (Heparin Na) 5,000 unit SC Q12 [facility] Last Admin: 08/23/17 09:58 Dose: 5,000 units Insulin Detemir (Levemir (Bkc)) 40 units SC QHS [facility] Last Admin: 08/22/17 21:25 Dose: 40 units Insulin Human Lispro (Humalog Kwikpen (Bkc)) 10 unit SQ BREAKFAST [facility] Last Admin: 08/23/17 08:13 Dose: 10 u Insulin Human Lispro (Humalog Kwikpen (Bkc)) 10 unit SQ DINNER [facility] Last Admin: 08/22/17 16:13 Dose: 10 u Insulin Human Lispro (Humalog Kwikpen (Bkc)) 10 unit SQ LUNCH [facility] Last Admin: 08/23/17 11:59 Dose: 10 u Insulin Human Lispro (Humalog Kwikpen (Bkc)) 0 unit SQ TIDAC [facility] PRN Reason: Protocol Last Admin: 08/23/17 11:59 Dose: 3 u Metoprolol Tartrate (Lopressor (Beta Hazel)) 50 mg PO BID [facility] Last Admin: 08/23/17 09:51 Dose: 50 mg Pantoprazole Sodium (Protonix) 40 mg PO DAILY [facility] Last Admin: 08/23/17 09:51 Dose: 40 mg Sodium Chloride () 5 - 30 ml IV UD PRN PRN Reason: SALINE FLUSH Last Admin: 08/22/17 12:51 Dose: 10 ml Medical Necessity - Tobacco Use Smoking Status: Never smoker Assessment/Plan All Active Problems DMII (diabetes mellitus, type 2) (Acute) DKA (diabetic ketoacidoses) (Acute) JOVANI (acute kidney injury) (Acute) Hyponatremia (Acute) 1. Diabetic ketoacidosis Due to dietary and medical noncompliance Gap is closed 2. Diabetes mellitus type 2 Uncontrolled but better than admission Will increase his Levemir further to 50 units at night +15 log with meals. 2. Metabolic encephalopathy Resolved today Likely due to the DKA. 3. Acute kidney injury Initial creatinine was 1.88 and now is 1.2. Sam became more acute component part related with his DKA. 4. Debility Patient had profound difficulty just moving himself in his bed and then quickly tired out. Physical therapy recommended shelter facility upon discharge. I discussed with patient, his and other family member who is at bedside and expresses recommendations to them. Patient and family are on board with going to a shelter facility upon discharge. I told them that may be another 24-40 hours before he can go to a shelter facility. 5. DVT prophylaxis with subcu heparin. Code Visit Inpatient E&M: 75300 Subs Hosp L2
--- NOTE | 2017-08-23 14:36 | PN_ITS ---
Patient Problems: Active and Suspected Problems DMII (diabetes mellitus, type 2) (Acute) DKA (diabetic ketoacidoses) (Acute) JOVANI (acute kidney injury) (Acute) Hyponatremia (Acute) Subjective: Much better today. No agitation or combativeness today. Vitals/I&O's: Vital Signs Temp Pulse Resp BP Pulse Ox 36.4 C L 85 20 H 164/75 H 96 08/23/17 12:00 08/23/17 12:00 08/23/17 12:00 08/23/17 12:00 08/23/17 12:00 Oxygen Flow Rate (L/min) 5 Oxygen Delivery Method Nasal Cannula Weight: 157.3 kg Body Mass Index (BMI) 50.3 Finger Stick Blood Glucose 252 Intake and Output for Last 24 Hours 08/21/17 08/22/17 08/23/17 23:59 23:59 23:59 Intake Total 2715 / 2715 760 / 760 Output Total 2450 / 2450 1800 / 1800 Balance 265 / 265 -1040 / -1040 General: Alert, No apparent distress, - - Oriented and pleasant. HEENT: Atraumatic, Normocephalic Oral: Moist Mucosa, No Gingival or Mucosal Lesions/ Ulcerations Neck: No Nodes, Thyroid Normal Size and Texture Lungs: Clear to auscultation, No rhonchi, No wheeze, Diminished Cardiovascular: Regular rate, Regular Rhythm, Normal S1, Normal S2 Abdomen: Bowel Sounds Present, Soft, Non Tender, Non-Distended, No Hepato- splenomegaly, Obese Extremities: No edema, No Calf Tenderness Psych/Mental Status: Normal Affect, Appropriate Laboratory Results 08/22/17 16:08: POC Glucose 314 H 08/22/17 21:22: POC Glucose 288 H 08/23/17 04:35: WBC 10.6, RBC 4.69, Hgb 13.8, Hct 40.0, MCV 85.3, MCH 29.4, MCHC 34.5, RDW 13.8, RDW Differential 42.5, Plt Count 292, MPV 10.1, Immature Gran % (Auto) 0.500, Neut % (Auto) 75.3 H, Lymph % (Auto) 14.9 L, [place] % (Auto) 8.9, Eos % (Auto) 0.2, Baso % (Auto) 0.2, Absolute Neuts (auto) 8.0 H, Absolute Lymphs (auto) 1.58, Total Counted Not Reportable 08/23/17 04:40: Sodium 138, Potassium 3.8, Chloride 99, Carbon Dioxide 23.0, Anion Gap 16 H, BUN 27 H, Creatinine 1.20, Estim Creat Clear Calc 62.52, Est GFR (MDRD) Af Amer 78, Est GFR (MDRD) Non-Af 64, BUN/Creatinine Ratio 22.5 H, Glucose 290 H, Calcium 9.8 08/23/17 06:47: POC Glucose 272 H 08/23/17 11:57: POC Glucose 319 H Current Medications Aspirin (Aspirin) 325 mg PO [facility]CM [facility] Last Admin: 08/23/17 09:51 Dose: 325 mg Atorvastatin Calcium (Lipitor) 40 mg PO DAILY@2200 [facility] Last Admin: 08/22/17 21:25 Dose: 40 mg Chlorhexidine Gluconate () 1 each TOPICAL DAILY [facility] Last Admin: 08/23/17 09:51 Dose: 1 each Clopidogrel Bisulfate (Plavix) 75 mg PO DAILY [facility] Last Admin: 08/23/17 09:51 Dose: 75 mg Dextrose (D50w Syringe) 0 gm IV X1 PRN; Protocol PRN Reason: Hypoglycemia Glucagon () 1 mg IM .X1 PRN PRN Reason: Hypoglycemia Heparin Sodium (Porcine) (Heparin Na) 5,000 unit SC Q12 [facility] Last Admin: 08/23/17 09:58 Dose: 5,000 units Insulin Detemir (Levemir (Bkc)) 40 units SC QHS [facility] Last Admin: 08/22/17 21:25 Dose: 40 units Insulin Human Lispro (Humalog Kwikpen (Bkc)) 10 unit SQ BREAKFAST [facility] Last Admin: 08/23/17 08:13 Dose: 10 u Insulin Human Lispro (Humalog Kwikpen (Bkc)) 10 unit SQ DINNER [facility] Last Admin: 08/22/17 16:13 Dose: 10 u Insulin Human Lispro (Humalog Kwikpen (Bkc)) 10 unit SQ LUNCH [facility] Last Admin: 08/23/17 11:59 Dose: 10 u Insulin Human Lispro (Humalog Kwikpen (Bkc)) 0 unit SQ TIDAC [facility] PRN Reason: Protocol Last Admin: 08/23/17 11:59 Dose: 3 u Metoprolol Tartrate (Lopressor (Beta Hazel)) 50 mg PO BID [facility] Last Admin: 08/23/17 09:51 Dose: 50 mg Pantoprazole Sodium (Protonix) 40 mg PO DAILY [facility] Last Admin: 08/23/17 09:51 Dose: 40 mg Sodium Chloride () 5 - 30 ml IV UD PRN PRN Reason: SALINE FLUSH Last Admin: 08/22/17 12:51 Dose: 10 ml Medical Necessity - Tobacco Use Smoking Status: Never smoker Assessment/Plan All Active Problems DMII (diabetes mellitus, type 2) (Acute) DKA (diabetic ketoacidoses) (Acute) JOVANI (acute kidney injury) (Acute) Hyponatremia (Acute) 1. Diabetic ketoacidosis * Due to dietary and medical noncompliance * Gap is closed 2. Diabetes mellitus type 2 * Uncontrolled but better than admission * Will increase his Levemir further to 50 units at night +15 log with meals. 2. Metabolic encephalopathy * Resolved today * Likely due to the DKA. 3. Acute kidney injury * Initial creatinine was 1.88 and now is 1.2. Sam became more acute component part related with his DKA. 4. Debility * Patient had profound difficulty just moving himself in his bed and then quickly tired out. * Physical therapy recommended custodial facility upon discharge. * I discussed with patient, his and other family member who is at bedside and expresses recommendations to them. Patient and family are on board with going to a custodial facility upon discharge. * I told them that may be another 24-40 hours before he can go to a custodial facility. 5. DVT prophylaxis with subcu heparin. Code Visit Inpatient E&M: 76015 Subs Hosp L2
[2017-08-23] MEDS: Insulin Lispro 100 UNIT/ML INSULN.PEN 15 UNIT SQ (16:49)
[2017-08-23 16:56] LABS: Bedside Glucose 348 mg/dL (70-110)
[2017-08-23] MEDS: Budesonide Respules 0.5 MG/2 ML AMPUL.NEB. INHALATION (19:07)
[2017-08-23] MEDS: Ipratropium/Albuterol Sulfate 3 ML AMPUL.NEB INHALATION (19:07)
[2017-08-23] MEDS: 0.9% NaCl Peripheral Flush Adult/Peds IV (22:13)
[2017-08-23] MEDS: Furosemide 40 MG Tablet PO (22:14)
[2017-08-23] MEDS: Atorvastatin Calcium 40 MG Tablet PO (22:14)
[2017-08-23 22:30] LABS: Bedside Glucose 344 mg/dL (70-110)
[2017-08-24 02:25] VITALS: BP 138/66; PULSE 76; RESP 16; TEMP 36.8; O2SAT 100
--- NOTE | 2017-09-01 10:31 | PCM.DC.SUM ---
Discharge Date and Diagnosis Date of Admission: 08/21/17 Date of Discharge: 08/24/17 - Primary Discharge Diagnosis #1 diabetic ketoacidosis secondary to noncompliance with medical regimen #2 metabolic encephalopathy secondary to diabetic ketoacidosis #3 acute kidney injury on a backdrop of stage III chronic kidney disease secondary to diabetes #4 hyponatremia #5 chronic debility #6 super morbid obesity Hospital Course and Treatment Operations: None Procedures: None Summary of Care Provided: The patient is a 67 year old M who was seen in the emergency room at [facility] with complaints of confusion and elevated blood sugar. Workup in the emergency room included labs which indicated the patient was in DKA, he had a blood sugar 629 and an anion gap of 31. Patient has stopped his insulin home due to a conflict with his , his had told him that she was him and so he stopped his insulin to manipulate her. Patient was admitted to ICU on insulin drip, he was confused on admission this was felt to be secondary to metabolic encephalopathy from his DKA. Patient's renal functions were impaired when he was admitted but with administration of fluids over time his creatinine dropped to a lower level. Patient was transferred to the medical floor and seen by PT and OT, it was felt that he required placement in a correction facility. On 08/24/17, patient was seen and examined felt to be in stable condition for transfer to an extended care facility. Home Medications: Medications to take at Discharge Aspirin 325 mg PO DAILY 08/21/17 Cholecalciferol (Vitamin D3) [Vitamin D3] 5,000 units DAILY 08/21/17 Clopidogrel Bisulfate [Plavix] 75 mg DAILY 08/21/17 Cyanocobalamin (Vitamin B-12) [Vitamin B12] 2,500 mcg PO DAILY 08/21/17 Esomeprazole Magnesium [Esomeprazole Magnesium] 40 mg DAILY 08/21/17 Fenofibrate Nanocrystallized [Fenofibrate] 145 mg DAILY 08/21/17 Fluticasone/Salmeterol [Advair 500-50 Diskus] 1 puff BID 08/21/17 Furosemide [Lasix] 40 mg TID 08/21/17 Gabapentin [Neurontin] 300 mg DAILY 08/21/17 Insulin Human 70/30 [Novolog Mix 70-30 Flexpen Syrn] 0 units SC 4X/DAY 08/21/17 Iron 1 tab DAILY 08/21/17 Losartan/Hydrochlorothiazide [Losartan-Hctz 50-12.5 mg Tab] 1 each PO DAILY 08/21/17 Metformin HCl [Glucophage] 1,000 mg BID 08/21/17 Metoprolol Tartrate [Lopressor (beta edison)] 50 mg BID 08/21/17 Potassium Chloride [Potassium Chloride] 40 meq DAILY 08/21/17 Rosuvastatin Calcium [Crestor] 20 mg PO DAILY 08/21/17 Tiotropium [place] [Spiriva] 08/21/17 Primary Care Physician: Tor Juarez [Primary Care Provider] - Disposition: Detention facility Minutes spent on discharge:: 35 Patient Condition:: Stable Medical Necessity - Tobacco Use Smoking Status: Never smoker Meaningful Use Info Meaningful Use Diagnoses (Choose all that apply): None applicable Code Visit Inpatient E&M: 42241 Disch Hosp
--- NOTE | 2017-09-01 10:35 | DS.PCM_ITS ---
Discharge Date and Diagnosis Date of Admission: 08/21/17 Date of Discharge: 08/24/17 - Primary Discharge Diagnosis #1 diabetic ketoacidosis secondary to noncompliance with medical regimen #2 metabolic encephalopathy secondary to diabetic ketoacidosis #3 acute kidney injury on a backdrop of stage III chronic kidney disease secondary to diabetes #4 hyponatremia #5 chronic debility #6 super morbid obesity Hospital Course and Treatment Operations: None Procedures: None Summary of Care Provided: The patient is a 67 year old M who was seen in the emergency room at [facility] with complaints of confusion and elevated blood sugar. Workup in the emergency room included labs which indicated the patient was in DKA, he had a blood sugar 629 and an anion gap of 31. Patient has stopped his insulin home due to a conflict with his , his had told him that she was him and so he stopped his insulin to manipulate her. Patient was admitted to ICU on insulin drip, he was confused on admission this was felt to be secondary to metabolic encephalopathy from his DKA. Patient's renal functions were impaired when he was admitted but with administration of fluids over time his creatinine dropped to a lower level. Patient was transferred to the medical floor and seen by PT and OT, it was felt that he required placement in a retirement facility. On 08/24/17, patient was seen and examined felt to be in stable condition for transfer to an extended care facility. Home Medications: Medications to take at Discharge Aspirin 325 mg PO DAILY 08/21/17 Cholecalciferol (Vitamin D3) [Vitamin D3] 5,000 units DAILY 08/21/17 Clopidogrel Bisulfate [Plavix] 75 mg DAILY 08/21/17 Cyanocobalamin (Vitamin B-12) [Vitamin B12] 2,500 mcg PO DAILY 08/21/17 Esomeprazole Magnesium [Esomeprazole Magnesium] 40 mg DAILY 08/21/17 Fenofibrate Nanocrystallized [Fenofibrate] 145 mg DAILY 08/21/17 Fluticasone/Salmeterol [Advair 500-50 Diskus] 1 puff BID 08/21/17 Furosemide [Lasix] 40 mg TID 08/21/17 Gabapentin [Neurontin] 300 mg DAILY 08/21/17 Insulin Human 70/30 [Novolog Mix 70-30 Flexpen Syrn] 0 units SC 4X/DAY 08/21/17 Iron 1 tab DAILY 08/21/17 Losartan/Hydrochlorothiazide [Losartan-Hctz 50-12.5 mg Tab] 1 each PO DAILY 04/09 Metformin HCl [Glucophage] 1,000 mg BID 08/21/17 Metoprolol Tartrate [Lopressor (beta edison)] 50 mg BID 08/21/17 Potassium Chloride [Potassium Chloride] 40 meq DAILY 08/21/17 Rosuvastatin Calcium [Crestor] 20 mg PO DAILY 08/21/17 Tiotropium [place] [Spiriva] 08/21/17 Primary Care Physician: Tor Juarez [Primary Care Provider] - Disposition: Group Home facility Minutes spent on discharge:: 35 Patient Condition:: Stable Medical Necessity - Tobacco Use Smoking Status: Never smoker Meaningful Use Info Meaningful Use Diagnoses (Choose all that apply): None applicable Code Visit Inpatient E&M: 54503 Disch Hosp
[2017-09-01 16:51] LABS: Bedside Glucose 318 mg/dL (70-110)
[2017-09-01 16:53] LABS: Bedside Glucose 383 mg/dL (70-110)
[2017-09-01 16:55] LABS: Bedside Glucose 362 mg/dL (70-110)
== END 2017-08-24 20:30 | disposition skilled nursing facility (03) | DRG 637 ==
LOC: ED 21:10 → ICU 23:13 → MS3 08-23 15:28
PROVIDERS: Admitting Provider Internal Medicine; Emergency Provider Emergency Medicine; Family Provider Internal Medicine; PCP Internal Medicine
DX: E11.10 Type 2 diabetes mellitus with ketoacidosis without coma (principal); G93.41 Metabolic encephalopathy; N17.9 Acute kidney failure, unspecified; E87.1 Hypo-osmolality and hyponatremia; Z68.43 Body mass index [BMI] 50.0-59.9, adult; J96.11 Chronic respiratory failure with hypoxia; Z79.4 Long term (current) use of insulin; Z78.1 Physical restraint status; R53.81 Other malaise; Z99.81 Dependence on supplemental oxygen; Z91.19 Patient's noncompliance with other medical treatment and regimen; E11.22 Type 2 diabetes mellitus with diabetic chronic kidney disease; I12.9 Hypertensive chronic kidney disease with stage 1 through stage 4 chronic kidney disease, or unspecified chronic kidney disease; N18.3 Chronic kidney disease, stage 3 (moderate)
CPT/HCPCS: 71045; 80048; 80053; 80076; 81001; 82009; 82962; 83036; 83735; 83930; 84100; 84484; 85025; 87641; 93005; 94640; 97110; 97162; 97166; 97530; 97802; 99285; J7030; A4216; J2405; J7799

== ENCOUNTER 2019-08-16 22:37 | Emergency (ER) | payer MEDICARE, MEDICAID, SELFPAY ==
[2019-08-16 22:37] VITALS: BP 160/85; PULSE 101; RESP 28; TEMP 36.4; O2SAT 93; BMI 55.9
--- NOTE | 2019-08-16 22:51 | RAD_ITS ---
STUDY: X-RAY CHEST REASON FOR EXAM: Male, 69 years old. SOB TECHNIQUE: Frontal and lateral views of the chest. COMPARISON: August 21, 2017 FINDINGS: There are patchy mid and lower lung increased opacities. There is no demonstrated pleural abnormality. Normal size heart. Normal mediastinum and y[place]. Normal visualized pulmonary arteries. Normal visualized aortic arch and descending thoracic aorta. Normal visualized thoracic spine. Normal visualized ribs, clavicles, and shoulders. There is no demonstrated abnormality of the visualized soft tissue structures of the upper abdomen. RAD/Chest PA and Lateral IMPRESSION: Bilateral lower lung infiltrates or edema. Electronically Signed: Hair Watkins MD at 23:30 EDT , Service support ,
--- NOTE | 2019-08-16 22:51 | EKG12_ITS ---
Test Reason : DYSRHYTHMIA Blood Pressure : / mmHG Vent. Rate : 098 BPM Atrial Rate : 098 BPM P-R Int : 130 ms QRS Dur : 140 ms QT Int : 378 ms P-R-T Axes : 013 -79 020 degrees QTc Int : 482 ms Sinus rhythm with occasional Premature ventricular complexes Left axis deviation Right bundle branch block Inferior infarct , age undetermined Abnormal ECG Confirmed by TANYA GARRETT ([id number]), sports editor CRISTELA LONG ([id number]) on 08/18/2019 2:18:44 PM Referred By: KARIN Confirmed By:TANYA GARRETT
--- NOTE | 2019-08-16 22:54 | ED.VIS.GEN ---
History of Present Illness Chief Complaint: Abd Pain Narrative: This patient is a 69-year-old male who presents with a generalized feeling of being unwell and nausea. He became nauseated today and just does not feel right. He states he has absolutely no pain although he was triaged as abdominal pain he denies any pain whatsoever. He otherwise denies recent illness. No fevers cough difficulty breathing rashes headaches vomiting diarrhea. He does complain of some sweating. He notes that he did sit in the heat for a while about 45 minutes today. It was 90 degrees today. He began to not feel well and then went and spent the rest of the day in his room. Past Medical History - Allergies and Home Meds Allergies/Adverse Reactions: Allergies Iodinated Contrast Media [Iodinated Contrast- Oral and IV Dye] Allergy (Severe, Verified 10/14/18 08:47) Anaphylaxis cephalexin [From Keflex] Allergy (Intermediate, Verified 10/18/18 09:57) Unknown sulfamethoxazole [From Bactrim] Allergy (Intermediate, Verified 10/18/18 09:57) Unknown trimethoprim [From Bactrim] Allergy (Intermediate, Verified 10/18/18 09:57) Unknown Primary Care Physician: Tor Juarez MD [NON-STAFF] - Past Medical History: - - Diabetes, hypertension, hyperlipidemia, coronary artery disease, Surgical History: no surgical history Smoking Status: Former smoker - Family History Maternal Family History: Family History (Last Updated 10/18/18 @ 09:58 by Kym Gallardo) Aunt Diabetes Cancer Family History: Reports: No pertinent history Review of Systems All systems negative except as indicated General: Reports: Sweats. Denies: Fever Eyes: Denies: Visual changes - bilaterally ENT: Denies: Bilateral ear pain Cardiovascular: Denies: Chest pain Respiratory: Denies: Dyspnea Gastrointestinal: Reports: Nausea. Denies: Abdominal pain, Vomiting, Diarrhea Musculoskeletal: Denies: Myalgias Skin: Denies: Rash Neurological: Denies: Headache Hematologic: Denies: Easy bruising Allergy: Denies: Uticaria Physical Exam Vital Signs/Narrative: Vital Signs Temp Pulse Resp BP Pulse Ox 08/16/19 22:37 97.5 F L 101 H 28 H 160/85 H 93 Inital Vital Signs reviewed: Yes General: Well nourished, Obese Head: Normocephalic Eyes: EOMI ENT: Moist mucous membranes Neck: Supple Cardiovascular: Regular rhythm, Tachycardia Respiratory: No distress, CTA bilaterally Abdomen: Soft, Nontender, Nondistended Back: Nontender Extremities: Nontender Skin: - - mild diaphoresis Neurological: Alert Psychological: Normal affect Diagnostic/Tx/Re-eval Impressions Chest X-Ray 08/16/19 22:51 IMPRESSION: Bilateral lower lung infiltrates or edema. Electronically Signed: Hair Watkins MD at 23:30 EDT , Service support , 08/16/19 22:51 Chest PA and Lateral [RAD] Stat Laboratory Results 08/16/19 08/16/19 22:50 22:50 WBC 10.7 RBC 4.96 Hgb 15.0 Hct 44.8 MCV 90.3 MCH 30.2 MCHC 33.5 RDW Std Deviation 42.9 RDW Coeff of Vickie 13.1 Plt Count 284 MPV 10.1 Immature Gran % (Auto) 0.700 Neut % (Auto) 63.2 Lymph % (Auto) 28.2 [place] % (Auto) 6.4 Eos % (Auto) 1.0 Baso % (Auto) 0.5 Absolute Neuts (auto) 6.8 Absolute Lymphs (auto) 3.03 Nucleated RBC % 0 Sodium 138 Potassium 4.3 Chloride 100 Carbon Dioxide 32.0 Anion Gap 6 BUN 18 Creatinine 0.99 Estim Creat Clear Calc 73.74 Est GFR (MDRD) Af Amer 97 Est GFR (MDRD) Non-Af 80 BUN/Creatinine Ratio 18.2 Glucose 283 H Calcium 10.2 H Troponin I < 0.015 - Medical Decision Making EKG shows a sinus rhythm with PVCs. There is a right bundle branch block which is new from prior EKG of 2018. No acute ischemic changes. Serum laboratory studies are normal with negative troponin renal function and cell counts. Chest x-ray shows bilateral lower lung infiltrates or edema. He has no shortness of breath. He has no cough. He has no fevers. We will obtain COVID testing and also add on a BNP. The patient is very anxious about being in the emergency department in the setting of the current pandemic. Prior to even discussing his results he notified nursing they wanted to leave it already taken off his gown and called his daughter. At this point given that he is hemodynamically stable and not hypoxic on his usual home oxygen I do believe he can be discharged. We will not get the COVID result back quickly and even if positive I think the patient to be discharged. If his BNP were elevated to suggest that this is more likely pulmonary edema again he is not hypoxic and we could likely just increase diuretic at home. Therefore we will discharge and I can notify him of his results and we can manage this as an outpatient. Patient will be discharged back to assisted living. ED Disposition - Plan for ED Patient: Disposition: Psychiatric Hospital or Unit Diagnosis: Nausea, Abnormal CXR (chest x-ray) Referrals: Tor Juarez MD [NON-STAFF] - Additional Instructions: You were seen today for nausea and not feeling well. Your initial blood work was normal. Your chest x-ray did show possible fluid or infection in both lower lungs. Some additional blood work and testing for coronavirus was obtained. You should return to the emergency department immediately for new or worsening symptoms and it is very important that you follow-up with your primary care doctor.
[2019-08-16 23:03] LABS: Absolute Lymphocyte Count 3.03 X10^3/uL (0.83-4.51); Absolute Neutrophil Count 6.8 X10^3/uL (2.0-7.7); Basophil# 0.05 X10^3/uL; Basophil% 0.5 % (0-1); Eosinophil# 0.11 X10^3/uL; Hematocrit 44.8 % (40-54); Lymphocyte # 3.03 X10^3/ul (4.0); Lymphocyte % 28.2 % (19-41); Mean Corp Hgb Conc 33.5 g/dL (32-36); Mean Corpuscular Hgb 30.2 pg (27.0-32.0); Mean Corpuscular Volume 90.3 fL (80-94); Mean Platelet Vol. 10.1 fl (6.2-12.0); Monocyte# 0.69 X10^3/uL; Monocyte% 6.4 % (0-10); NRBC Flagged by Analyzer 0 % (0-5); Neutrophil # 6.77 X10^3/uL (2.7-7.7); Neutrophil % 63.2 % (47-70); Platelet Count 284 K/mm3 (150-450); RBC Distribution Width CV 13.1 % (11.6-14.6); RBC Distribution Width SD 42.9 fl (35.1-43.9); Red Blood Count 4.96 M/mm3 (4.6-6.2); White Blood Count 10.7 K/mm3 (4.4-11.0)
[2019-08-16 23:22] LABS: Anion Gap 6 (5-15); BUN 18 mg/dL (7-18); BUN/Creat Ratio 18.2 RATIO (10-20); Calcium,Total 10.2 mg/dL (8.5-10.1); Chloride 100 mmol/L (98-107); Creatinine, Serum 0.99 mg/dL (0.70-1.30); EST Glomerular Filtration Rate 80 mL/min (>60); Est Glom Filt Rate - Afr Amer 97 mL/min (>60); Estimated Creatinine Clearance 73.74 ml/min; Glucose 283 mg/dL (74-106); Potassium 4.3 mmol/L (3.5-5.1); Sodium Level 138 mmol/L (136-145)
--- NOTE | 2019-08-16 23:33 | NURSING ---
pt is a very poor historian. pt does not know medical history or medication
[2019-08-17 00:25] VITALS: BP 144/78; PULSE 94; RESP 24; O2SAT 99
[2019-08-17 01:19] LABS: BNP,B-Type NATRIURETIC PEPTIDE 35.2 pg/mL (0-100)
== END 2019-08-17 00:25 | disposition home or self-care (01) ==
PROVIDERS: Emergency Provider Emergency Medicine; PCP Nurse Practitioner Adult Health
DX: R11.0 Nausea (principal); I25.10 Atherosclerotic heart disease of native coronary artery without angina pectoris; I10 Essential (primary) hypertension; E11.9 Type 2 diabetes mellitus without complications; E78.5 Hyperlipidemia, unspecified; Z87.891 Personal history of nicotine dependence; Z79.4 Long term (current) use of insulin; Z79.82 Long term (current) use of aspirin; Z79.899 Other long term (current) drug therapy
CPT/HCPCS: 71046; 80048; 83880; 84484; 85025; 87635; 93005; 96360; 99285; G2023; J7040; A4216; U0004